=== PATIENT | male | born 1995 | race Caucasian/White ===

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

== ENCOUNTER 2017-02-01 06:56 | Emergency (ER) | payer MEDICAID ==
[~2017-02-01] VITALS: Ht 177.8 cm; Wt 71.0 kg
[~2017-02-01 06:56] MED LIST changes: +LOTR1CRE TOPICAL; -PRED50TA PO
[2017-02-01 06:59] VITALS: BP 142/80; PULSE 71; RESP 16; TEMP 98; O2SAT 99
--- NOTE | 2017-02-01 07:26 | PD ---
HPI Chief Complaint: Skin Problem Time Seen by Provider: 07:13 Travel History International Travel<30 days: No Contact w/Intl Traveler<30days: No Traveled to known affect area: No History of Present Illness HPI This patient reports that he was driving barefoot in his car broke down. He had to walk on some hot asphalt. He got some blistering to the bottom of his feet. Severity is mild. Duration one day PFSH Past Medical History Medical History: Denies Significant Hx Diminished Hearing: No Immunizations Current: Yes Tetanus Vaccination: Unknown Influenza Vaccination: Yes Past Surgical History Surgical History: No Previous Surgery Social History Alcohol Use: Yes (occ) Tobacco Use: No Substance Use: No Allergies-Medications (Allergen,Severity, Reaction): Coded Allergies: No Known Allergies (Verified , 02/01/17) Reported Meds & Prescriptions Reported Meds & Active Scripts Active No Active Prescriptions or Reported Medications Review of Systems General / Constitutional: No: Fever HENT: No: Headaches Cardiovascular: No: Chest Pain or Discomfort Physical Exam Narrative Psych: Normal mood and affect. Normal insight and judgment. SKIN: Focused skin assessment reveals no rash or ulcers. Skin is warm and dry. Palpation shows no induration or nodules. Feet: Minor blistering on the bottom of the feet. No sign of infection. Data Data Last Documented VS Vital Signs Date Time Temp Pulse Resp B/P Pulse Ox O2 Delivery O2 Flow Rate FiO2 02/01/17 06:59 98.0 71 16 142/80 99 MDM Medical Decision Making Medical Screen Exam Complete: Yes Emergency Medical Condition: Yes Medical Record Reviewed: Yes Differential Diagnosis Blister, burning, rash Narrative Course I have reviewed the patient's electronic medical record. Supportive care discussed. No specific medical treatment needed Diagnosis Primary Impression: Blister of foot without infection Qualified Code: S90.829A - Blister of foot without infection, unspecified laterality, initial encounter Additional Instructions: The patient was advised to follow up with their physician and return if they worsen. Med/Other Pt SpecificInfo: Other Scripts No Active Prescriptions or Reported Meds Disposition: 01 DISCHARGE HOME Condition: Stable Vikas Landers MD Feb 01, 2017 07:26
== END 2017-02-01 07:34 | disposition home or self-care (01) ==
LOC: PHED 06:56
DX: S90.821A Blister (nonthermal), right foot, initial encounter (principal); S90.822A Blister (nonthermal), left foot, initial encounter; X15.2XXA Contact with hotplate, initial encounter; Y93.01 Activity, walking, marching and hiking; Y92.410 Unspecified street and highway as the place of occurrence of the external cause; Y99.8 Other external cause status
CPT/HCPCS: 99281

== ENCOUNTER 2017-09-01 10:51 | Emergency (ER) | payer MEDICAID ==
[~2017-09-01] VITALS: Ht 175.3 cm; Wt 75.1 kg
[2017-09-01 10:58] VITALS: BP 151/69; PULSE 71; RESP 16; TEMP 98.4; O2SAT 98
--- NOTE | 2017-09-01 11:07 | PD ---
HPI Chief Complaint: Cold / Flu Symptoms Time Seen by Provider: 11:01 Travel History International Travel<30 days: No Contact w/Intl Traveler<30days: No Traveled to known affect area: No History of Present Illness HPI Patient comes in complaining of cough, congestion, subjective fevers, and generalized body aches ongoing for 4 days. Patient feels like he may have the flu. Patient reports taking BC powder for this last dose was yesterday and seemed to help some. Denies anything making it worse. Denies any chest pain or shortness of breath, nausea, vomiting, neck pain, sore throat, loss or change in bowel or bladder, headache, or numbness or tingling anywhere. Patient reports sinus pressure over his frontal sinuses without radiation. [facility] Past Medical History Medical History: Denies Significant Hx Diminished Hearing: No Immunizations Current: Yes Social History Alcohol Use: Yes (occ) Tobacco Use: No Substance Use: No Allergies-Medications (Allergen,Severity, Reaction): Coded Allergies: No Known Allergies (Verified Adverse Reaction, Unknown, 09/01/17) Reported Meds & Prescriptions Reported Meds & Active Scripts Active Zithromax Z-Tomas (Azithromycin) 250 Mg Dspk 250 Mg PO DIRECTED 500 MG (2 tabs) day 1, then 1 tab days 2-5. Review of Systems Except as stated in HPI: all other systems reviewed are Neg Physical Exam Narrative GENERAL: Well-developed, well nourished, in no acute distress, and non-ill appearing. SKIN: Focused skin assessment warm and dry. HEAD: Atraumatic. Normocephalic. EYES: Pupils equal and round. EOMI. No scleral icterus. No injection or drainage. ENT: No nasal bleeding or discharge. Mucous membranes pink and moist. Tympanic membranes pearly flores bilaterally. Posterior pharynx nonerythematous without exudate. uvula is midline. Patient reports tenderness to palpation frontal sinuses. NECK: Trachea midline. No cervical lymphadenopathy. Supple. No nuclear rigidity. CARDIOVASCULAR: Regular rate and rhythm. No murmur appreciated. RESPIRATORY: No accessory muscle use. No respiratory distress. Clear to auscultation. Breath sounds equal bilaterally. No coughing on exam. Patient speaking in full sentences without difficulty. MUSCULOSKELETAL: No obvious deformities. No clubbing. No cyanosis. No edema. Full range of motion. NEUROLOGICAL: Awake and alert. No obvious cranial nerve deficits. Motor grossly within normal limits. Normal speech. PSYCHIATRIC: Appropriate mood and affect; insight and judgment normal. Data Data Last Documented VS Vital Signs Date Time Temp Pulse Resp B/P (MAP) Pulse Ox O2 Delivery O2 Flow Rate FiO2 09/01/17 10:58 98.4 71 16 151/69 (96) 98 Orders Orders Influenzae A/B Antigen (09/01/17 11:04) Ed Discharge Order (09/01/17 11:39) [facility] Medical Decision Making Medical Screen Exam Complete: Yes Emergency Medical Condition: Yes Differential Diagnosis Influenza, sinusitis, allergies, URI, rhonchi, viral syndrome Narrative Course Patient looks great, non-ill appearing. The patient is tolerating fluids and is well hydrated. Appears acute sinusitis. No clinical evidence by history or evaluation to suspect meningitis and/or sepsis. There was no evidence to suggest deep abscess or cavernous sinus involvement. I discussed with the patient, diagnosis, plan of care, medications and to follow up with the patients primary physician. The patient was instructed to return if the worsens in anyway, especially if not tolerating fluids, increased sinus pain or swelling , worsening headache, persistent fever, difficulty swallowing or breathing, or as needed. The patient agreed with plan. Patient in no obvious distress upon re-evaluation. All pertinent laboratory result(s) discussed with patient. Patient was asked if they wanted to speak to my attending, which the patient did not wish to do at this time. Any questions/ concerns in reference to patient diagnosis/condition discussed and clarified prior to patient's discharge. Reinforced sheer importance of close follow up with patient's primary physician or primary care clinic. Instructed patient to return to ED immediately, if symptoms return/worsen. Patient showed understanding of above instructions. Further instructions and recommendations were detailed in discharge paperwork. Patient ambulated without difficulty out of ED at discharge. Diagnosis Primary Impression: Sinusitis, acute frontal Qualified Codes: J01.10 - Acute frontal sinusitis, unspecified Referrals: [facility] Patient Instructions: General Instructions, Sinusitis (GEN) Departure Forms: Work Release Enter return to work date: Sep 02, 2017 Additional Instructions: Follow-up with your primary care physician in 3-5 days for reevaluation. Take all medication as prescribed. Drink plenty of non-caffeinated and nonalcoholic fluids. Use [id number] cold and flu medication as needed for symptomatic relief. Follow instructions and the packaging. Return to the emergency department if symptoms get worse. Med/Other Pt SpecificInfo: Prescription(s) given Scripts Azithromycin (Zithromax Z-Tomas) 250 Mg Dspk 250 MG PO DIRECTED for Infection, #1 DSPK 0 Refills 500 MG (2 tabs) day 1, then 1 tab days 2-5. Prov: Louise Baptiste MD 09/01/17 Disposition: 01 DISCHARGE HOME Condition: Stable Byron Patel Sep 01, 2017 11:07
[2017-09-01] MEDS ORDERED: ZITHTAB PO (11:39)
== END 2017-09-01 12:00 | disposition home or self-care (01) ==
LOC: PHEFT 10:51
DX: J01.10 Acute frontal sinusitis, unspecified (principal); R05 Cough; R50.9 Fever, unspecified; M79.1 Myalgia
CPT/HCPCS: 87804; 99283

== ENCOUNTER 2018-01-16 06:13 | Emergency (ER) | payer SELFPAY ==
[~2018-01-16] VITALS: Ht 175.3 cm; Wt 73.9 kg
[~2018-01-16 06:13] MED LIST changes: -LOTR1CRE TOPICAL; +ZITHTAB PO
[2018-01-16 06:16] VITALS: BP 119/65; PULSE 71; TEMP 97.8; O2SAT 98
[2018-01-16] MEDS ORDERED: ZITHTAB PO (06:38)
[2018-01-16] MEDS ORDERED: ALBUAER3 INH (06:38)
[2018-01-16] MEDS ORDERED: MEDR4PAK PO (06:38)
--- NOTE | 2018-01-16 06:39 | PD ---
HPI Chief Complaint: Cold / Flu Symptoms Time Seen by Provider: 06:36 Travel History International Travel<30 days: No Contact w/Intl Traveler<30days: No Traveled to known affect area: No History of Present Illness HPI 22-year-old male presents to the emergency department for complaint of 5 days of productive cough with wheezing. Patient states he is used [id number] medications without symptomatically relief. Patient had yellow sputum production. Coworkers are ill. Patient states that his cough so much his abdominal muscles are sore. Patient denies previous history of respiratory illness other than the flu and July. Patient does smoke electronic cigarette. PFS Past Medical History Narrative Medical Negative past medical history negative surgical history electronic tobacco use; nursing notes reviewed Medical History: Denies Significant Hx Diminished Hearing: No Immunizations Current: Yes Tetanus Vaccination: > 5 Years Influenza Vaccination: No Past Surgical History Surgical History: No Previous Surgery Social History Alcohol Use: Yes (occ) Tobacco Use: No (vapes) Substance Use: No Allergies-Medications (Allergen,Severity, Reaction): Coded Allergies: No Known Allergies (Verified Adverse Reaction, Unknown, 01/16/18) Reported Meds & Prescriptions Reported Meds & Active Scripts Active Proair Hfa 8.5 GM Inh (Albuterol Sulfate) 90 Mcg/Act Aer 2 Puff INH Q4-6H PRN 108 mcg/actuation Medrol Dosepak (Methylprednisolone) 4 Mg Dspk 4 Mg PO DIRECTED Per Pharmacist direction Zithromax Z-Tomas (Azithromycin) 250 Mg Dspk 250 Mg PO DIRECTED 500 MG (2 tabs) day 1, then 1 tab days 2-5. Review of Systems Except as stated in HPI: all other systems reviewed are Neg General / Constitutional: No: Fever, Chills HENT: Positive: Sore Throat, Congestion Cardiovascular: No: Chest Pain or Discomfort Respiratory: Positive: Cough, Wheezing Gastrointestinal: No: Vomiting, Abdominal Pain Genitourinary: No: Flank Pain Musculoskeletal: No: Myalgias, Arthralgias Skin: No Rash Neurologic: No: Weakness Psychiatric: No: Anxiety Hematologic/Lymphatic: No: Lymph Node Enlargement Physical Exam Narrative GENERAL: Well-developed well-nourished male no acute distress no respiratory distress; intermittent coughing SKIN: Warm and dry. HEAD: Normocephalic. EYES: No scleral icterus. No injection or drainage. ENT: Mucous membranes moist airways patent no pharyngeal edema erythema or exudative change NECK: Supple, trachea midline. No JVD or lymphadenopathy. CARDIOVASCULAR: Regular rate and rhythm without murmurs, gallops, or rubs. RESPIRATORY: Breath sounds equal bilaterally. No accessory muscle use. GASTROINTESTINAL: Abdomen soft, non-tender, nondistended. MUSCULOSKELETAL: No cyanosis, or edema. BACK: Nontender without obvious deformity. No CVA tenderness. Data Data Last Documented VS Vital Signs Date Time Temp Pulse Resp B/P (MAP) Pulse Ox O2 Delivery O2 Flow Rate FiO2 01/16/18 06:16 97.8 71 119/65 (83) 98 Orders Orders Ed Discharge Order (01/16/18 06:36) [facility] Medical Decision Making Medical Screen Exam Complete: Yes Emergency Medical Condition: Yes Medical Record Reviewed: Yes Differential Diagnosis Cough viral syndrome bronchitis sinusitis number Narrative Course Patient with cough congestion sputum production symptoms persistent 5 days with worsening symptoms patient has had subjective fever without chills. Patient will be started on oral antibiotics steroid therapy and albuterol inhaler. Patient is encouraged to discontinue tobacco use/electronic cigarette use. Patient will be given 1 day off and is encouraged to increase fluid hydration and monitor temperature for fever and take as needed acetaminophen or ibuprofen. Patient is encouraged to follow-up with his primary care provider Patient is encouraged to return to the emergency department for any concerns or change in condition Diagnosis Primary Impression: Bronchitis Referrals: Primary Care Physician call for appointment Patient Instructions: General Instructions Departure Forms: Tests/Procedures, Work Release Special Instructions: no work x 1 day Additional Instructions: Increase fluid hydration Take medication as prescribed Take acetaminophen as needed for fever 100.4F or greater Take ibuprofen as needed for fever 100.4F or greater for pain associated with inflammation; avoid use while taking steroid taper No work 1 Return to the emergency department for any concerns or change in Follow-up with your primary care provider Med/Other Pt SpecificInfo: Prescription(s) given Scripts Albuterol 8.5 GM Inh (Proair Hfa 8.5 GM Inh) 90 Mcg/Act Aer 2 PUFF INH Q4-6H Y for SHORTNESS OF BREATH, #1 INHALER 0 Refills 108 mcg/actuation Prov: Prachi Antony MD 01/16/18 Methylprednisolone Dosepak (Medrol Dosepak) 4 Mg Dspk 4 MG PO DIRECTED, #1 DSPK 0 Refills Per Pharmacist direction Prov: Prachi Antony MD 01/16/18 Azithromycin (Zithromax Z-Tomas) 250 Mg Dspk 250 MG PO DIRECTED for Infection, #1 DSPK 0 Refills 500 MG (2 tabs) day 1, then 1 tab days 2-5. Prov: Prachi Antony MD 01/16/18 Disposition: 01 DISCHARGE HOME Condition: Stable Prachi Antony MD January 16, 2018 06:38
== END 2018-01-16 06:52 | disposition home or self-care (01) ==
LOC: PHED 06:13
DX: J40 Bronchitis, not specified as acute or chronic (principal); F17.290 Nicotine dependence, other tobacco product, uncomplicated
CPT/HCPCS: 99283